=== PATIENT | male | born 2000 | race African-American/Black ===

== ENCOUNTER 2022-08-18 17:31 | Inpatient (IN) | payer OTHER ==
[~2022-08-18] VITALS: Ht 175.3 cm; Wt 75.8 kg
[2022-08-18] MEDS ORDERED: FLUO10CA18 PO ×2 (17:43→20:52)
[2022-08-18 19:05] LABS: HEMATOCRIT 42.6 % (42.0-52.0); HEMOGLOBIN 14.4 g/dl (13.5-17.5); MEAN CORPUSCULAR HEMOGLOBIN 29.9 pg (27.0-33.0); MEAN CORPUSCULAR HGB CONC 33.8 g/dl (32.0-36.5); MEAN CORPUSCULAR VOLUME 88.6 fl (80.0-96.0); PLATELET COUNT, AUTOMATED 269 10^3/uL (150-450); RED BLOOD COUNT 4.81 10^6/uL (4.30-6.10)
[2022-08-18 20:05] LABS: ACETAMINOPHEN LEVEL < 2.0 UG/ML (10.0-30.0); ALBUMIN 4.2 GM/DL (3.2-5.2); ALT/SGPT 27 U/L (12-78); BILIRUBIN,DIRECT 0.1 MG/DL (0.0-0.2); BILIRUBIN,TOTAL 0.6 MG/DL (0.2-1.0); BLOOD UREA NITROGEN 14 MG/DL (7-18); CARBON DIOXIDE LEVEL 27 MEQ/L (21-32); CHLORIDE LEVEL 104 MEQ/L (98-107); CREATININE FOR GFR 1.11 MG/DL (0.70-1.30); ETHYL ALCOHOL (ETHANOL) < 0.003 % (0.000-0.010); GLOMERULAR FILTRATION RATE > 60.0 (>60); GLUCOSE, FASTING 89 MG/DL (70-100); POTASSIUM SERUM 3.8 MEQ/L (3.5-5.1); SALICYLATE LEVEL < 1.7 MG/DL (5.0-30.0); SODIUM LEVEL 135 MEQ/L (136-145); THYROID STIMULATING HORMONE 0.639 uIU/ML (0.358-3.740); TOTAL PROTEIN 7.6 GM/DL (6.4-8.2)
[2022-08-18 21:01] LABS: AMPHETAMINES LEVEL URINE NEGATIVE (NEGATIVE); BARBITURATES URINE NEGATIVE (NEGATIVE); BENZODIAZEPINES URINE NEGATIVE (NEGATIVE); CANNABINOIDS URINE POSITIVE (NEGATIVE); COCAINE METABOLITE URINE NEGATIVE (NEGATIVE); METHADONE URINE NEGATIVE (NEGATIVE); OPIATES URINE NEGATIVE (NEGATIVE); PHENCYCLIDINE URINE NEGATIVE (NEGATIVE)
[2022-08-18] MEDS ORDERED: HOME MED LIST COMPLETE! XX SCH (21:40)
[2022-08-18 21:45] LABS: RSV AMPLIFICATION NEGATIVE (NEGATIVE)
[2022-08-19] MEDS: FLUoxetine 10 MG CAP PO SCH (09:53)
[2022-08-20] MEDS: FLUoxetine 10 MG CAP PO SCH (08:55)
[2022-08-20] MEDS ORDERED: FLUoxetine 10 MG CAP PO SCH (09:00)
[2022-08-20] MEDS ORDERED: hydrOXYzine 50 MG TAB PO PRN (14:20)
[2022-08-20] MEDS ORDERED: traZODone 50 MG TAB PO PRN (14:20)
[2022-08-20] MEDS ORDERED: ACETAMINOPHEN TAB 650MG DOSE (2X325MG) PO PRN (14:20)
[2022-08-20] MEDS ORDERED: NICOTINE 21MG/24HR 1 EA TRANSDERMAL TD PRN (14:20)
[2022-08-20] MEDS ORDERED: MOM 30ML SUSPENSION UDC PO PRN (14:20)
[2022-08-20] MEDS ORDERED: MAALOX 30 ML SUSP *UDC PO PRN (14:20)
[2022-08-20 16:48] VITALS: BP 127/80
[2022-08-21 06:05] VITALS: BP 136/60
[2022-08-21] MEDS ORDERED: FLUoxetine 10 MG CAP PO SCH (09:00)
[2022-08-21] MEDS ORDERED: HYDR50TA70 PO (09:42)
== END 2022-08-21 14:17 | disposition home or self-care (01) | DRG 882 ==
LOC: M ED 17:31 → M ED INP 08-20 14:19 → M PSY 08-20 16:37
PROVIDERS: ADMIT Student in an Organized Health Care Education/Training Program; ATTEND Student in an Organized Health Care Education/Training Program
DX: F43.22 Adjustment disorder with anxiety (principal); Z20.822 Contact with and (suspected) exposure to COVID-19; Z79.899 Other long term (current) drug therapy; Z63.79 Other stressful life events affecting family and household

== ENCOUNTER 2022-09-24 19:40 | Inpatient (IN) | payer OTHER ==
[~2022-09-24] VITALS: Ht 175.3 cm; Wt 76.8 kg
[~2022-09-24 19:40] MED LIST: FLUO10CA18 PO; HYDR50TA70 PO
[2022-09-24 20:59] LABS: HEMATOCRIT 44.1 % (42.0-52.0); HEMOGLOBIN 14.7 g/dl (13.5-17.5); MEAN CORPUSCULAR HEMOGLOBIN 29.6 pg (27.0-33.0); MEAN CORPUSCULAR HGB CONC 33.3 g/dl (32.0-36.5); MEAN CORPUSCULAR VOLUME 88.9 fl (80.0-96.0); PLATELET COUNT, AUTOMATED 291 10^3/uL (150-450); RED BLOOD COUNT 4.96 10^6/uL (4.30-6.10); WHITE BLOOD COUNT 5.9 10^3/uL (4.0-10.0)
[2022-09-24 21:33] LABS: RSV AMPLIFICATION NEGATIVE (NEGATIVE)
[2022-09-24 21:37] LABS: ACETAMINOPHEN LEVEL < 2.0 UG/ML (10.0-20.0); ALBUMIN 4.1 G/DL (3.2-5.2); ALT/SGPT 18 U/L (7.0-40); BILIRUBIN,DIRECT 0.3 MG/DL (<0.4); BILIRUBIN,TOTAL 0.9 MG/DL (0.3-1.2); BLOOD UREA NITROGEN 12 MG/DL (9-23); CARBON DIOXIDE LEVEL 28 MMOL/L (20-31); CHLORIDE LEVEL 102 MMOL/L (98-107); CREATININE FOR GFR 0.94 MG/DL (0.70-1.30); ETHYL ALCOHOL (ETHANOL) 0.003 % (0.000-0.010); GLOMERULAR FILTRATION RATE > 60.0 (>60); GLUCOSE, FASTING 97 MG/DL (60-100); POTASSIUM SERUM 4.3 MMOL/L (3.5-5.1); SODIUM LEVEL 139 MMOL/L (136-145); THYROID STIMULATING HORMONE 0.828 uIU/ML (0.55-4.78); TOTAL PROTEIN 6.8 G/DL (5.7-8.2)
[2022-09-24 21:40] LABS: SALICYLATE LEVEL < 3.0 MG/DL (<30)
[2022-09-24 22:33] LABS: AMPHETAMINES LEVEL URINE NEGATIVE (NEGATIVE); BARBITURATES URINE NEGATIVE (NEGATIVE); BENZODIAZEPINES URINE NEGATIVE (NEGATIVE); CANNABINOIDS URINE NEGATIVE (NEGATIVE); COCAINE METABOLITE URINE NEGATIVE (NEGATIVE); METHADONE URINE NEGATIVE (NEGATIVE); OPIATES URINE NEGATIVE (NEGATIVE); PHENCYCLIDINE URINE NEGATIVE (NEGATIVE)
[2022-09-24] MEDS ORDERED: HYDR50TA70 PO (23:10)
[2022-09-24] MEDS ORDERED: FLUO20CA22 PO (23:10)
[2022-09-24] MEDS ORDERED: HOME MED LIST COMPLETE! XX SCH (23:15)
[2022-09-25] MEDS ORDERED: MOM 30ML SUSPENSION UDC PO PRN (21:00)
[2022-09-25] MEDS ORDERED: MAALOX 30 ML SUSP *UDC PO PRN (21:00)
[2022-09-25] MEDS ORDERED: hydrOXYzine 50 MG TAB PO PRN (21:00)
[2022-09-25] MEDS ORDERED: ACETAMINOPHEN TAB 650MG DOSE (2X325MG) PO PRN (21:00)
[2022-09-25] MEDS: FLUoxetine 20MG CAP PO SCH (21:52)
[2022-09-25 23:40] VITALS: BP 133/70
[2022-09-26 06:10] VITALS: BP 117/62
[2022-09-26 18:05] VITALS: BP 129/60
[2022-09-26] MEDS: FLUoxetine 20MG CAP PO SCH (21:34)
[2022-09-27 06:16] VITALS: BP 118/57
[2022-09-27 18:00] VITALS: BP 132/65
[2022-09-27] MEDS: FLUoxetine 20MG CAP PO SCH (21:57)
[2022-09-27] MEDS: traZODone 50 MG TAB PO PRN (21:57)
[2022-09-28 06:44] VITALS: BP 114/57
[2022-09-28 18:15] VITALS: BP 123/58
[2022-09-28] MEDS: FLUoxetine 20MG CAP PO SCH (21:21)
[2022-09-28] MEDS: traZODone 50 MG TAB PO PRN (21:21)
[2022-09-29 06:33] VITALS: BP 114/62
[2022-09-29 16:22] VITALS: BP 128/64
[2022-09-29] MEDS: traZODone 50 MG TAB PO PRN (20:59)
[2022-09-29] MEDS: FLUoxetine 20MG CAP PO SCH (20:59)
[2022-09-30 06:25] VITALS: BP 106/56
[2022-09-30 16:48] VITALS: BP 138/70
[2022-09-30] MEDS: FLUoxetine 20MG CAP PO SCH (20:57)
[2022-09-30] MEDS: traZODone 50 MG TAB PO PRN (20:57)
[2022-10-01 05:55] VITALS: BP 126/65
[2022-10-01] MEDS ORDERED: TRAZ-252 PO (09:51)
== END 2022-10-01 13:15 | disposition home or self-care (01) | DRG 881 ==
LOC: M ED 19:40 → EDBD 19:40 → M ED INP 09-25 21:00 → M PSY 09-25 23:40
PROVIDERS: ADMIT Psychiatry & Neurology Psychiatry; ATTEND Psychiatry & Neurology Psychiatry
DX: F32.A Depression, unspecified (principal); F43.22 Adjustment disorder with anxiety; M41.9 Scoliosis, unspecified; Z79.899 Other long term (current) drug therapy